=== PATIENT | male | born 1990 | race Caucasian/White ===

== ENCOUNTER 2016-12-26 05:40 | Emergency (ER) | payer OTHER ==
[~2016-12-26 05:40] MED LIST: AUGMENTIN 875-1 EAC1 PO; DAY TIME COLD-1 EACH PO; GENTAMICIN EYE D5 ML OD; GOOD NEIGHBOR200 M3 PO
[2016-12-26 07:42] VITALS: BP 123/98
== END 2016-12-26 07:39 | disposition home or self-care (01) ==
LOC: ED 05:40
DX: R55 Syncope and collapse (principal); R53.83 Other fatigue
CPT/HCPCS: J7030

== ENCOUNTER → 2018-02-16 | Outpatient (CLI) | payer SELFPAY ==
[~2018-02-16] VITALS: Ht 190.5 cm; Wt 113.6 kg
[2018-02-16 18:27] VITALS: BP 100/57
--- NOTE | 2018-02-16 18:40 | NUR ---
PATIENT DESCRIBES PAIN 10/10 PRIOR TO MEDS, FLUIDS, AFTER MEDS GIVEN AND MOST OF FLUIDS INFUSED HE STATES HIS PAIN IS 2-3.
[2018-02-16 18:47] VITALS: BP 105/62
[2018-02-16 18:52] LABS: HEMATOCRIT 44.9 % (42.0-52.0); RED BLOOD COUNT 5.16 M/mm3 (4.20-5.60); RED CELL DISTRIBUTION WIDTH 13.5 % (11.5-14.5); WHITE BLOOD COUNT 10.3 K/mm3 (4.8-10.8)
[2018-02-16 18:53] LABS: MEAN PLATELET VOLUME 12.6 fl (7.4-10.4)
[2018-02-16 19:00] LABS: ALBUMIN 4.2 g/dL (3.5-5.0); BUN/CREATININE RATIO 15.6 (6.0-26.0); CALCIUM 9.5 mg/dL (8.4-10.2); POTASSIUM 3.6 mmol/L (3.6-5.0); TOTAL BILIRUBIN 0.5 mg/dL (0.2-1.3); TOTAL PROTEIN 7.1 g/dL (6.3-8.2)
== END ==
LOC: AMSURD 16:48
PROVIDERS: Nurse Practitioner Family
DX: G43.909 Migraine, unspecified, not intractable, without status migrainosus (principal); R11.2 Nausea with vomiting, unspecified; R42 Dizziness and giddiness
CPT/HCPCS: J1200; J1885; J2405; J7030

== ENCOUNTER 2018-02-20 23:08 | Emergency (ER) | payer SELFPAY ==
[~2018-02-20] VITALS: Ht 193 cm; Wt 115.9 kg
[2018-02-21] MEDS ORDERED: MIDRIN PO (01:28)
[2018-02-21 01:42] VITALS: BP 120/60
== END 2018-02-21 01:42 | disposition home or self-care (01) ==
LOC: ED 23:08
DX: R51 Headache (principal); R11.2 Nausea with vomiting, unspecified; F17.200 Nicotine dependence, unspecified, uncomplicated
CPT/HCPCS: J1885; J2765; J7030

== ENCOUNTER 2018-02-23 19:11 | Emergency (ER) | payer SELFPAY ==
[~2018-02-23] VITALS: Ht 193 cm; Wt 113.6 kg
[~2018-02-23 19:11] MED LIST changes: +MIDRIN PO
[2018-02-23 19:39] LABS: EOS # 0.1 (0.04-0.40); HEMATOCRIT 44.9 % (42.0-52.0); HEMOGLOBIN 15.1 g/dL (13.5-18.0); LYMPH# 1.6 (1.50-4.00); MEAN CELL VOLUME 86 fl (78-100); MEAN CORPUSCULAR HEMOGLOBIN 29 pg (27-31); MEAN CORPUSCULAR HGB CONC 34 g/dL (33-37); MEAN PLATELET VOLUME 11.8 fl (7.4-10.4); MONO # 0.8 (0.20-0.80); NEU # 5.6 (1.40-6.50); PLATELET COUNT 239 K/mm3 (130-400); RED CELL DISTRIBUTION WIDTH 13.3 % (11.5-14.5); WHITE BLOOD COUNT 8.2 K/mm3 (4.8-10.8)
[2018-02-23 20:01] LABS: ALBUMIN 4.6 g/dL (3.5-5.0); BUN/CREATININE RATIO 14.5 (6.0-26.0); CALCIUM 9.3 mg/dL (8.4-10.2); POTASSIUM 3.7 mmol/L (3.6-5.0); TOTAL BILIRUBIN 0.5 mg/dL (0.2-1.3); TOTAL PROTEIN 7.6 g/dL (6.3-8.2)
[2018-02-24 00:05] VITALS: BP 105/66
== END 2018-02-24 00:05 | disposition home or self-care (01) ==
LOC: ED 19:11
PROVIDERS: Nurse Practitioner Family
DX: R51 Headache (principal); R11.2 Nausea with vomiting, unspecified; F41.9 Anxiety disorder, unspecified; R20.0 Anesthesia of skin; Z87.891 Personal history of nicotine dependence; Z88.5 Allergy status to narcotic agent; H53.8 Other visual disturbances
CPT/HCPCS: J1200; J1885; J2405

== ENCOUNTER 2018-11-19 03:25 | Emergency (ER) | payer SELFPAY ==
[2018-11-19] MEDS ORDERED: CYCLOBENZAPRINE10 M1 PO (04:12)
[2018-11-19] MEDS ORDERED: IBU800 M1 PO (04:12)
[2018-11-19 04:20] VITALS: BP 133/90
== END 2018-11-19 04:20 ==
LOC: ED 03:25
DX: M62.830 Muscle spasm of back (principal); M54.5 Low back pain; F41.8 Other specified anxiety disorders; F17.210 Nicotine dependence, cigarettes, uncomplicated; Z88.6 Allergy status to analgesic agent; Z98.890 Other specified postprocedural states

== ENCOUNTER → 2021-12-23 | Outpatient (CLI) | payer SELFPAY ==
[~2021-12-23] MED LIST changes: +CYCLOBENZAPRINE10 M1 PO; +IBU800 M1 PO
[2021-12-23 16:32] LABS: BASO # 0.04 K/mm3 (0.02-0.10); EOS % 1.8 % (0.0-4.0); HEMATOCRIT 41.8 % (42.0-52.0); HEMOGLOBIN 13.7 g/dL (13.5-18.0); LYMPH# 1.61 K/mm3 (1.50-4.00); MEAN CELL VOLUME 86 fl (78-100); MEAN CORPUSCULAR HEMOGLOBIN 28 pg (27-31); MEAN CORPUSCULAR HGB CONC 33 g/dL (33-37); MEAN PLATELET VOLUME 10.9 fl (7.4-10.4); MONO # 0.44 K/mm3 (0.20-0.80); NEU # 3.48 K/mm3 (1.40-6.50); PLATELET COUNT 278 K/mm3 (130-400); RED BLOOD COUNT 4.87 M/mm3 (4.20-5.60); RED CELL DISTRIBUTION WIDTH 13.9 % (11.5-14.5); WHITE BLOOD COUNT 5.7 K/mm3 (4.8-10.8)
[2021-12-23 16:45] LABS: ALBUMIN 4.2 g/dL (3.5-5.0); POTASSIUM 3.8 mmol/L (3.5-5.1); SODIUM 139 mmol/L (136-145)
[2021-12-23 16:46] LABS: CALCIUM 9.3 mg/dL (8.3-10.5)
[2021-12-23 16:47] LABS: GLUCOSE 112 mg/dL (75-110)
[2021-12-23 16:48] LABS: TOTAL PROTEIN 6.9 g/dL (6.4-8.3)
[2021-12-23 16:49] LABS: CARBON DIOXIDE 22 mmol/L (22-29); TOTAL BILIRUBIN 0.7 mg/dL (0.2-1.2)
[2021-12-23 16:53] LABS: AST-SGOT 22 U/L (5-34)
[2021-12-23 16:54] LABS: ALT/SGPT 33 U/L (0-55)
[2021-12-23 17:01] LABS: TROPONIN-I < 0.030 ng/mL (<0.030)
== END ==
LOC: LAB 16:15
PROVIDERS: Nurse Practitioner Family
DX: R07.9 Chest pain, unspecified (principal)

== ENCOUNTER 2022-03-06 20:15 | Emergency (ER) | payer BC ==
[~2022-03-06] VITALS: Wt 111.4 kg
[2022-03-06 21:58] LABS: BASO # 0.06 K/mm3 (0.02-0.10); EOS % 1.4 % (0.0-4.0); HEMATOCRIT 43.7 % (42.0-52.0); HEMOGLOBIN 14.3 g/dL (13.5-18.0); LYMPH# 2.42 K/mm3 (1.50-4.00); MEAN CELL VOLUME 85 fl (78-100); MEAN CORPUSCULAR HEMOGLOBIN 28 pg (27-31); MEAN CORPUSCULAR HGB CONC 33 g/dL (33-37); MEAN PLATELET VOLUME 11.1 fl (7.4-10.4); MONO # 1.08 K/mm3 (0.20-0.80); NEU # 3.59 K/mm3 (1.40-6.50); PLATELET COUNT 286 K/mm3 (130-400); RED BLOOD COUNT 5.16 M/mm3 (4.20-5.60); RED CELL DISTRIBUTION WIDTH 13.4 % (11.5-14.5); WHITE BLOOD COUNT 7.3 K/mm3 (4.8-10.8)
[2022-03-06 22:08] LABS: ALBUMIN 4.3 g/dL (3.5-5.0); POTASSIUM 3.8 mmol/L (3.5-5.1)
[2022-03-06 22:09] LABS: CALCIUM 9.1 mg/dL (8.3-10.5)
[2022-03-06 22:11] LABS: TOTAL PROTEIN 7.1 g/dL (6.4-8.3)
[2022-03-06 22:12] LABS: TOTAL BILIRUBIN 0.5 mg/dL (0.2-1.2)
[2022-03-06 23:09] LABS: URINE APPEARANCE CLEAR; URINE COLOR YELLOW
[2022-03-06 23:10] LABS: PH-URINE 6.5 (5.0 - 8.0); URINE BILIRUBIN NEGATIVE (NEGATIVE); URINE BLOOD NEGATIVE (NEGATIVE); URINE GLUCOSE NEGATIVE (NEGATIVE); URINE KETONE NEGATIVE (NEGATIVE); URINE LEUKOCYTE ESTERASE NEGATIVE (NEGATIVE); URINE NITRATE NEGATIVE (NEGATIVE); URINE PROTEIN(semi-quant) TRACE (NEGATIVE); URINE UROBILINOGEN NORMAL (NORMAL); URINE WBC 0-1 /hpf (0-3)
[2022-03-06 23:11] LABS: URINE MUCUS PRESENT (NOT PRESENT)
[2022-03-06] MEDS ORDERED: NORCO 325 MG-51 TA1 PO (23:33)
[2022-03-06 23:51] VITALS: BP 120/86
[2022-03-07] MEDS ORDERED: CELEXA 20MG20 MG/TA1 PO (00:42)
== END 2022-03-06 23:55 | disposition home or self-care (01) ==
LOC: ED 20:15
PROVIDERS: Family Medicine
DX: N20.0 Calculus of kidney (principal); E66.9 Obesity, unspecified
CPT/HCPCS: J1170; J2405; Q9967

== ENCOUNTER → 2023-01-06 | Outpatient (CLI) | payer OTHER ==
[~2023-01-06] MED LIST changes: +CELEXA 20MG20 MG/TA1 PO; +NORCO 325 MG-51 TA1 PO
== END ==
LOC: RAD 09:36
DX: R07.9 Chest pain, unspecified (principal)